=== PATIENT | male | born 1965 | race Two or more races ===

== ENCOUNTER → 2021-03-25 | Day surgery (SDC) | payer OTHER ==
[~2021-03-25] VITALS: Ht 162.6 cm; Wt 90.7 kg
[~2021-03-25] MED LIST: LIDOCAINE VISCOUS 2% 15ML UD ONE
[2021-03-25 09:08] LABS: Basophils # (auto) 0 10 ^3/uL (0-0.2); Basophils % (auto) 0.4 % (0.0-2.0); Eosinophils # (auto) 0 10 ^3/uL (0-0.8); Eosinophils % (auto) 0.4 % (0.0-7.0); Hematocrit 44.5 % (41.0-53.0); Hemoglobin 15.3 g/dL (13.5-17.5); Lymphocytes # (auto) 2.4 10 ^3/uL (0.4-5.4); Lymphocytes % (auto) 28.7 % (10.0-50.0); Mean Corpuscular Hemoglobin 30.8 pg (28.0-32.0); Mean Corpuscular Hgb Conc. 34.3 g/dL (32.0-36.0); Mean Corpuscular Volume 89.9 fL (80.0-100.0); Monocytes # (auto) 0.4 10 ^3/uL (0-1.3); Monocytes % (auto) 4.1 % (0.0-12.0); Neutrophils # (auto) 5.7 10 ^3/uL (1.6-8.6); Neutrophils % (auto) 66.4 % (37.0-80.0); Red Blood Cells 4.96 10^6/uL (4.5-5.90); Red Cell Distribution Width 12.8 % (11.8-14.3); White Blood Cell 8.5 10^3/uL (4.4-10.8)
[2021-03-25 09:14] LABS: INR 1.06 (0.9-1.15); Partial Thromboplastin Time 28.3 sec (23.6-33.0)
[2021-03-25 09:17] LABS: BUN/Creatinine Ratio 12.6; Potassium 4.3 mmol/L (3.5-5.1)
[2021-03-25] MEDS: MIDAZOLAM HCL 5 MG/ML-1ML VIAL ONE ×3 (10:22→10:30)
[2021-03-25] MEDS: fentaNYL CITRATE 100 MCG/2 ML VL ONE ×2 (10:22→10:25)
[2021-03-25] MEDS: diphenhdrAMINE HCL 50 MG/1 ML VL ONE ×2 (10:22→10:25)
[2021-03-25 11:10] VITALS: BP 135/86
== END | disposition home or self-care (01) ==
LOC: GI 08:09
PROVIDERS: ATTEND Internal Medicine Gastroenterology
DX: K92.0 Hematemesis (principal); K44.9 Diaphragmatic hernia without obstruction or gangrene; K31.89 Other diseases of stomach and duodenum; K22.4 Dyskinesia of esophagus; K21.00 Gastro-esophageal reflux disease with esophagitis, without bleeding; K29.50 Unspecified chronic gastritis without bleeding; I10 Essential (primary) hypertension; Z20.822 Contact with and (suspected) exposure to COVID-19; Z98.890 Other specified postprocedural states; Z79.899 Other long term (current) drug therapy
CPT/HCPCS: 36415; 43239; 71045; 80048; 85025; 85610; 85730; J1200; J2250; J3010; J7030; 99152

== ENCOUNTER → 2021-03-26 | Outpatient (CLI) | payer OTHER ==
[~2021-03-26] MED LIST changes: +IOHEXOL 350 MG/ML 100ML IJ ONE; -LIDOCAINE VISCOUS 2% 15ML UD ONE
== END | disposition home or self-care (01) ==
LOC: XYW 07:42
DX: J98.4 Other disorders of lung (principal); I70.0 Atherosclerosis of aorta; I25.10 Atherosclerotic heart disease of native coronary artery without angina pectoris; M47.814 Spondylosis without myelopathy or radiculopathy, thoracic region; M19.012 Primary osteoarthritis, left shoulder; M19.011 Primary osteoarthritis, right shoulder; K44.9 Diaphragmatic hernia without obstruction or gangrene
CPT/HCPCS: 71275; Q9967